=== PATIENT | male | born 1995 | race Caucasian/White ===

== ENCOUNTER 2016-07-05 11:04 | Emergency (ER) | payer OTHER ==
[~2016-07-05] VITALS: Ht 170.2 cm; Wt 72.1 kg
[2016-07-05 11:04] VITALS: BP 143/75
[2016-07-05] MEDS ORDERED: HYDR-971 PO (11:24)
--- NOTE | 2016-07-05 12:28 | ED.ADGEN ---
Past History Past Medical History: Other Past Surgical History: Tonsillectomy Alcohol Use: None Drug Use: None Adult General HPI HPI Patient is a 21 y/o male c/o bilateral low back pain 1 hour after finishing a 4 mile june with full pack. Denies bowel/bladder dysfunction or saddle anesthesia. No prehospital intervention. Review of Systems Review of Systems Constitutional: Denies fever or chills [] Eyes: Denies change in visual acuity, redness, or eye pain [] HENT: Denies nasal congestion or sore throat [] Respiratory: Denies cough or shortness of breath [] Cardiovascular: No additional information not addressed in HPI [] GI: Denies abdominal pain, nausea, vomiting, bloody stools or diarrhea [] : Denies dysuria or hematuria [] Musculoskeletal: Denies back pain or joint pain [] Integument: Denies rash or skin lesions [] Neurologic: Denies headache, focal weakness or sensory changes [] Endocrine: Denies polyuria or polydipsia [] Allergies Allergies Allergies Coded Allergies Type Severity Reaction Last Updated Verified No Known Drug Allergies 03/09/16 No Physical Exam Physical Exam Constitutional: Well developed, well nourished, no acute distress, non-toxic appearance. [] HENT: Normocephalic, atraumatic, bilateral external ears normal, oropharynx moist, no oral exudates, nose normal. [] Eyes: PERRLA, EOMI, conjunctiva normal, no discharge. [] Neck: Normal range of motion, no tenderness, supple, no stridor. [] Cardiovascular:Heart rate regular rhythm, no murmur [] Lungs & Thorax: Bilateral breath sounds clear to auscultation [] Abdomen: Bowel sounds normal, soft, no tenderness, no masses, no pulsatile masses. [] Skin: Warm, dry, no erythema, no rash. [] Back: bilateral paraspinal ttp, no midline tenderness, no CVA tenderness. [] Extremities: No tenderness, no cyanosis, no clubbing, ROM intact, no edema. [] Neurologic: Alert and oriented X 3, normal motor function, normal sensory function, no focal deficits noted. [] Psychologic: Affect normal, judgement normal, mood normal. [] Current Patient Data Vital Signs Vital Signs Date Time Temp Pulse Resp B/P Pulse Ox O2 Delivery O2 Flow Rate FiO2 07/05/16 11:04 98.3 79 20 98 Room Air EKG EKG [] Radiology/Procedures Radiology/Procedures [] Course & Med Decision Making Course & Med Decision Making Pertinent Labs and Imaging studies reviewed. (See chart for details) supportive care. Follow up and return precautions given. [] Final Impression Final Impression Low back pain[] Problems: Dragon Disclaimer Dragon Disclaimer This electronic medical record was generated, in whole or in part, using a voice recognition dictation system. BEAN GONZALEZ MD Jul 05, 2016 12:28
== END 2016-07-05 11:36 | disposition home or self-care (01) ==
LOC: ER 11:04
DX: M54.89 Other dorsalgia (principal)
CPT/HCPCS: 99283

== ENCOUNTER 2016-11-30 19:31 | Emergency (ER) | payer OTHER ==
[~2016-11-30] VITALS: Ht 170.2 cm; Wt 72.1 kg
[~2016-11-30 19:31] MED LIST: HYDR-971 PO
[2016-11-30 19:42] VITALS: BP 126/75
[2016-11-30] MEDS ORDERED: NAPR500T PO (19:57)
--- NOTE | 2016-11-30 19:57 | PHYS DOC ---
Past History Past Medical History: No Pertinent History, Other Past Surgical History: Tonsillectomy Alcohol Use: None Drug Use: None Adult General Chief Complaint Chief Complaint: SHOULDER INJURY HPI HPI She is a pleasant 21-year-old male otherwise healthy who was walking down a flight of stairs when asked he slipped and fell on his left scapula. He denies any loss of conscious, neck pain, focal neurologic deficits in the arm or shoulder. Patient denies any shortness of breath, abdominal pain or other injuries. Pain is with range of motion and direct pressure over the inferior medial aspect of the scapular border. Patient denies any prior injury to same thing. Patient's pain is 7 of 10 worse with range of motion better with immobilization. Review of Systems Review of Systems Constitutional: Denies fever or chills [] Eyes: Denies change in visual acuity, redness, or eye pain [] HENT: Denies nasal congestion or sore throat [] Respiratory: Denies cough or shortness of breath [] Cardiovascular: No additional information not addressed in HPI [] GI: Denies abdominal pain, nausea, vomiting, bloody stools or diarrhea [] : Denies dysuria or hematuria [] Musculoskeletal: Denies back pain or joint pain [] Integument: Denies rash or skin lesions [] Neurologic: Denies headache, focal weakness or sensory changes [] Endocrine: Denies polyuria or polydipsia [] Allergies Allergies Allergies Coded Allergies Type Severity Reaction Last Updated Verified No Known Drug Allergies 03/09/16 No Physical Exam Physical Exam Vital signs reviewed on the chart which documented is within normal limits. Constitutional: Well developed, well nourished, no acute distress, non-toxic appearance. [] HENT: Normocephalic, atraumatic, bilateral external ears normal, oropharynx moist, no oral exudates, nose normal. [] Eyes: PERRLA, EOMI, conjunctiva normal, no discharge. [] Neck: Normal range of motion, no tenderness, supple, no stridor. [] Cardiovascular:Heart rate regular rhythm, no murmur [] Lungs & Thorax: Bilateral breath sounds clear to auscultation [] Skin: Warm, dry, no erythema, no rash. [] Back: Demonstrates significant tissue tenderness to palpation over the order of the scapula and the inferior border of the scapula. There is some mild soft tissue swelling as well. There is decent range of motion external rotation and abduction at the shoulder. There is no tenderness to palpation of the anterior or lateral aspect of the deltoid. Extremities: No tenderness, no cyanosis, no clubbing, increased range of motion in the left shoulder secondary to pain. Capillary refill is brisk at +2 peripheral pulses are brisk at +2 at the radial pulse. Neurologic: Alert and oriented X 3, normal motor function, normal sensory function, no focal deficits noted. [] Psychologic: Affect normal, judgement normal, mood normal. [] Current Patient Data Vital Signs Vital Signs Date Time Temp Pulse Resp B/P (MAP) Pulse Ox O2 Delivery O2 Flow Rate FiO2 11/30/16 19:42 98.8 98 20 97 Room Air EKG EKG [] Radiology/Procedures Radiology/Procedures [] Patient's 3 view x-rays of the left shoulder timed 7:47 PM 11/30/2016 demonstrates no occult scapular fracture no fracture the clavicle and before meals joint humerus looks intact without fracture. Course & Med Decision Making Course & Med Decision Making Pertinent Labs and Imaging studies reviewed. (See chart for details) [] Dragon Disclaimer Dragon Disclaimer This chart was dictated in whole or in part using Voice Recognition software in a busy, high-work load, and often noisy Emergency Department environment. It may contain unintended and wholly unrecognized errors or omissions. Departure Departure: Impression: Primary Impression: Contusion, scapular region Additional Impression: Left shoulder strain Disposition: 01 HOME, SELF-CARE Condition: STABLE Referrals: SANDY PIERSON DO, [facility] (PCP) Patient Instructions: Contusion, Shoulder Pain, Shoulder Sprain Additional Instructions: Please go sick: Monitor symptoms continue. Please return for any new or increasing symptoms if you have any shortness of breath, chest pain is worsened despite treatment or if you have any question concerns. Scripts Naproxen (NAPROSYN) 500 Mg Tablet 1 TAB PO BID, #20 TAB 1 Refill Prov: ROSEANNE REILLY MD 11/30/16 Problem Qualifiers ROSEANNE REILLY MD Nov 30, 2016 19:57
--- NOTE | 2016-12-01 12:01 | RAD ---
Three-view left shoulder radiographs November 30, 2016 Clinical history: Injury to left shoulder. AP internal and external rotation and transscapular digital radiographs of the left shoulder were obtained. No fracture or dislocation left shoulder is seen. Impression: No fracture or dislocation of the left shoulder is seen.
== END 2016-11-30 20:22 | disposition home or self-care (01) ==
LOC: ER 19:31
DX: S46.912A Strain of unspecified muscle, fascia and tendon at shoulder and upper arm level, left arm, initial encounter (principal); W10.8XXA Fall (on) (from) other stairs and steps, initial encounter; Y93.01 Activity, walking, marching and hiking; Y99.8 Other external cause status; Y92.89 Other specified places as the place of occurrence of the external cause
CPT/HCPCS: 73030; 99284

== ENCOUNTER 2017-04-05 02:05 | Emergency (ER) | payer OTHER ==
[~2017-04-05] VITALS: Ht 170.2 cm; Wt 70.3 kg
[~2017-04-05 02:05] MED LIST changes: +NAPR-683 PO
[2017-04-05] MEDS ORDERED: ASPIRIN 81 MG TAB.CHEW PO ONE (02:15)
[2017-04-05] MEDS ORDERED: IV RINGERS SOLUTION,LACTATED 1,000 ML IV SCH (02:15)
[2017-04-05] MEDS ORDERED: LORazepam 1 MG TABLET ONE (02:21)
[2017-04-05] MEDS ORDERED: ASPIRIN 81 MG TAB.CHEW ONE (02:21)
--- NOTE | 2017-04-05 02:27 | ED.ADGEN ---
Past History Past Medical History: Anxiety, Depression, Other Past Surgical History: Tonsillectomy Alcohol Use: None Drug Use: None Adult General Chief Complaint Chief Complaint " .. I think I am having a panic attack...there was a yelling between two friends and I got up set.. I ve had previous dx of panic attack.. I got some cognitive behavioral therapy and was on meds.. 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 Pt. states previously dx as panic disorder. Pt. does smoke. Pt. denies excessive caffeine use. Denies illicit drug use. Patient rises with tachycardia and frequent PVCs per monitor. Patient denies any specific ill contacts, travel or trauma. Patient gets his care at [facility]. Review of Systems Review of Systems Complaints of panic feelings Constitutional: Denies fever or chills [] Eyes: Denies change in visual acuity, redness, or eye pain [] HENT: Denies nasal congestion or sore throat [] Respiratory: Denies cough or shortness of breath [] Cardiovascular: No additional information not addressed in HPI [] GI: Denies abdominal pain, nausea, vomiting, bloody stools or diarrhea [] : Denies dysuria or hematuria [] Musculoskeletal: Denies back pain or joint pain [] Integument: Denies rash or skin lesions [] Neurologic: Denies headache, focal weakness or sensory changes [] Endocrine: Denies polyuria or polydipsia [] All other systems were reviewed and found to be within normal limits, except as documented in this note. Family History Family History Noncontributory Current Medications Current Medications Current Medications Medications (Trade) Dose Ordered Sig/Debi Start Time Stop Time Status Last Admin Dose Admin Aspirin (Children'S Aspirin) 81 mg STK-MED ONCE 04/05/17 02:21 04/05/17 04:13 DC Lactated Ringer's 1,000 ml @ 1,000 mls/hr Q1H 04/05/17 02:15 04/05/17 04:13 DC 04/05/17 02:23 1,000 MLS/HR Lorazepam (Ativan) 1 mg STK-MED ONCE 04/05/17 02:21 04/05/17 04:13 DC Magnesium Hydroxide (Milk Of Magnesia) 2,400 mg STK-MED ONCE 04/05/17 04:01 04/05/17 04:13 DC See nursing for home meds Allergies Allergies Allergies Coded Allergies Type Severity Reaction Last Updated Verified No Known Drug Allergies 03/09/16 No Physical Exam Physical Exam Constitutional: Well developed, well nourished, no acute distress, non-toxic appearance. [] HENT: Normocephalic, atraumatic, bilateral external ears normal, oropharynx moist, no oral exudates, nose normal. [] Eyes: PERRLA, EOMI, conjunctiva normal, no discharge. [] Neck: Normal range of motion, no tenderness, supple, no stridor. [] Cardiovascular: Tachycardia Heart rate regular rhythm, no murmur [, frequent PVCs per monitor Lungs & Thorax: Bilateral breath sounds equal at apexes with scattered wheezes on Auscultation [] Abdomen: Bowel sounds normal, soft, no tenderness, no masses, no pulsatile masses. [] Skin: Warm, dry, no erythema, no rash. [] Back: No tenderness, no CVA tenderness. [] Extremities: No tenderness, no cyanosis, no clubbing, ROM intact, no edema. [] Neurologic: Alert and oriented X 3, normal motor function, normal sensory function, no focal deficits noted. [] Psychologic: Affect normal, judgement normal, mood normal. [] Current Patient Data Vital Signs Vital Signs Date Time Temp Pulse Resp B/P (MAP) Pulse Ox O2 Delivery O2 Flow Rate FiO2 04/05/17 04:10 96 16 124/67 (86) 95 Room Air Lab Results Laboratory Tests Test 04/05/17 02:25 04/05/17 03:10 White Blood Count 8.6 x10^3/uL (4.0-11.0) Red Blood Count 5.15 x10^6/uL (4.30-5.70) Hemoglobin 16.6 g/dL (13.0-17.5) Hematocrit 47.0 % (39.0-53.0) Mean Corpuscular Volume 91 fL (79-100) Mean Corpuscular Hemoglobin 32 pg (25-35) Mean Corpuscular Hemoglobin Concent 35 g/dL (31-37) Red Cell Distribution Width 13.1 % (11.5-14.5) Platelet Count 253 x10^3/uL (140-400) Neutrophils (%) (Auto) 59 % (31-73) Lymphocytes (%) (Auto) 30 % (24-48) Monocytes (%) (Auto) 10 % (0-9) H Eosinophils (%) (Auto) 1 % (0-3) Basophils (%) (Auto) 0 % (0-3) Neutrophils # (Auto) 5.1 x10^3uL (1.8-7.7) Lymphocytes # (Auto) 2.6 x10^3/uL (1.0-4.8) Monocytes # (Auto) 0.8 x10^3/uL (0.0-1.1) Eosinophils # (Auto) 0.1 x10^3/uL (0.0-0.7) Basophils # (Auto) 0.0 x10^3/uL (0.0-0.2) Prothrombin Time 10.8 SEC (9.4-11.4) Prothrombin Time INR 1.1 (0.9-1.1) PTT 22 SEC (23-33) L D-Dimer (Ally) < 0.19 mg/L (0.00-0.50) Sodium Level 144 mmol/L (136-145) Potassium Level 4.1 mmol/L (3.5-5.1) Chloride Level 104 mmol/L (98-107) Carbon Dioxide Level 28 mmol/L (21-32) Anion Gap 12 (6-14) Blood Urea Nitrogen 11 mg/dL (8-26) Creatinine 1.0 mg/dL (0.7-1.3) Estimated GFR (Cockcroft-Gault) 95.3 Glucose Level 116 mg/dL (70-99) H Calcium Level 9.2 mg/dL (8.5-10.1) Magnesium Level 1.7 mg/dL (1.8-2.4) L Total Bilirubin 0.2 mg/dL (0.2-1.0) Direct Bilirubin 0.1 mg/dL (0.0-0.2) Aspartate Amino Transferase (AST) 18 U/L (15-37) Alanine Aminotransferase (ALT) 27 U/L (16-63) Alkaline Phosphatase 65 U/L (46-116) Creatine Kinase 88 U/L (39-308) Creatine Kinase MB (Mass) < 0.5 ng/mL (0.0-3.6) Creatine Kinase MB Relative Index 0.6 % (0-4) Troponin I Quantitative < 0.017 ng/mL (0-0.055) Total Protein 7.5 g/dL (6.4-8.2) Albumin 4.0 g/dL (3.4-5.0) Thyroid Stimulating Hormone (TSH) 5.615 uIU/mL (0.358-3.740) Urine Collection Type Unknown Urine Color Straw Urine Clarity Clear Urine pH 7.0 Urine Specific Dowell 1.015 Urine Protein Neg (NEG-TRACE) Urine Glucose (UA) Neg mg/dL (NEG) Urine Ketones (Stick) Neg mg/dL (NEG) Urine Blood Neg (NEG) Urine Nitrite Neg (NEG) Urine Bilirubin Neg (NEG) Urine Urobilinogen Dipstick 0.2 mg/dL (0.2 mg/dL) Urine Leukocyte Esterase Neg (NEG) Urine RBC 0 /HPF (0-2) Urine WBC 0 /HPF (0-4) Urine Squamous Epithelial Cells Occ /LPF Urine Transitional Epithelial Cells Occ /LPF Urine Renal Epithelial Cells Occ /LPF Urine Bacteria Few /HPF (0-FEW) Urine Opiates Screen Neg (NEG) Urine Methadone Screen Neg (NEG) Urine Barbiturates Neg (NEG) Urine Phencyclidine Screen Neg (NEG) Urine Amphetamine/Methamphetamine Neg (NEG) Urine Benzodiazepines Screen Neg (NEG) Urine Cocaine Screen Neg (NEG) Urine Cannabinoids Screen Neg (NEG) Urine Ethyl Alcohol Neg (NEG) EKG EKG My interpretation of EKG shows a sinus tachycardia heart beats per minute. Does have PVCs.[] Radiology/Procedures Radiology/Procedures [] Course & Med Decision Making Course & Med Decision Making Pertinent Labs and Imaging studies reviewed. (See chart for details) Follow up andrea Dotsone cognitive behavior counseling. Consider out pt. stress testing. [] Final Impression Final Impression 1. History of panic/anxiety disorder[] 2. . Tachycardia with frequent PVCs 3. Hypomagnesium Problems: Dragon Disclaimer Dragon Disclaimer This electronic medical record was generated, in whole or in part, using a voice recognition dictation system. CLARA WATKINS MD Apr 05, 2017 02:27
[2017-04-05] MEDS ORDERED: LORazepam 1 MG TABLET PO ONE (02:30)
[2017-04-05 02:40] LABS: BASO % 0 % (0-3); EOS # 0.1 x10^3/uL (0.0-0.7); EOS % 1 % (0-3); HEMOGLOBIN 16.6 g/dL (13.0-17.5); LYMPH # 2.6 x10^3/uL (1.0-4.8); LYMPH % 30 % (24-48); MEAN CORPUSCULAR HEMOGLOBIN 32 pg (25-35); MEAN CORPUSCULAR HGB CONC 35 g/dL (31-37); MEAN CORPUSCULAR VOLUME 91 fL (79-100); MONO # 0.8 x10^3/uL (0.0-1.1); MONO % 10 % (0-9); NEUT # 5.1 x10^3uL (1.8-7.7); NEUT % 59 % (31-73); PLATELET COUNT 253 x10^3/uL (140-400); RED BLOOD COUNT 5.15 x10^6/uL (4.30-5.70); RED CELL DISTRIBUTION WIDTH 13.1 % (11.5-14.5); WHITE BLOOD COUNT 8.6 x10^3/uL (4.0-11.0)
[2017-04-05 03:01] LABS: ALK PHOS 65 U/L (46-116); ALT (SGPT) 27 U/L (16-63); ANION GAP 12 (6-14); AST (SGOT) 18 U/L (15-37); BLOOD UREA NITROGEN 11 mg/dL (8-26); CALCIUM 9.2 mg/dL (8.5-10.1); CARBON DIOXIDE 28 mmol/L (21-32); CHLORIDE 104 mmol/L (98-107); CREATINE KINASE 88 U/L (39-308); DIRECT BILIRUBIN 0.1 mg/dL (0.0-0.2); GFR 95.3; GLUCOSE 116 mg/dL (70-99); MAGNESIUM 1.7 mg/dL (1.8-2.4); POTASSIUM 4.1 mmol/L (3.5-5.1); SODIUM 144 mmol/L (136-145); TOTAL BILIRUBIN 0.2 mg/dL (0.2-1.0); TOTAL PROTEIN 7.5 g/dL (6.4-8.2)
[2017-04-05 03:24] LABS: BILIRUBIN,URINE NEG (NEG); CLARITY,URINE CLEAR; COLOR,URINE STRAW; GLUCOSE,URINE NEG (NEG); NITRITE,URINE NEG (NEG); UROBILINOGEN,URINE 0.2 mg/dL (0.2 mg/dL)
[2017-04-05 03:25] LABS: BACTERIA,URINE FEW /HPF (0-FEW); RBC,URINE 0 /HPF (0-2); SQUAMOUS EPITHELIAL CELL,UR OCC /LPF; WBC,URINE 0 /HPF (0-4)
[2017-04-05 03:30] LABS: BARBITURATES NEG (NEG); BENZODIAZEPINES NEG (NEG); CANNABINOIDS NEG (NEG); COCAINE NEG (NEG); METHADONE NEG (NEG); OPIATES NEG (NEG); PHENCYCLIDINE NEG (NEG)
[2017-04-05] MEDS ORDERED: MAGNESIUM HYDROXIDE 2,400 MG/30 ML ORAL.SUSP. PO ONE (03:30)
[2017-04-05 03:34] LABS: AMPHETAMINE/METHAMPHETAMINE NEG (NEG)
[2017-04-05] MEDS ORDERED: MAGNESIUM HYDROXIDE 2,400 MG/30 ML ORAL.SUSP. ONE ×2 (03:35→04:01)
[2017-04-05 04:10] VITALS: BP 124/67
--- NOTE | 2017-04-05 06:40 | EKG ---
[address] [address] Test Date: 2017-04-05 Test Time: 02:21:00 Pat Name: JOYCE DUARTE Department: Room: Gender: M [employer] Operator: VANDA : 1995 Requested By: CLARA WATKINS Order Number: [id number] Reading MD: Measurements Intervals [place] Rate: 100 P: 60 AK: 142 QRS: 58 QRSD: 94 T: 26 QT: 318 QTc: 413 Interpretive Statements SINUS RHYTHM VENTRICULAR PREMATURE COMPLEX(ES) ABNORMAL ECG RI6.01 Unconfirmed report No previous ECG available for comparison
--- NOTE | 2017-04-05 09:01 | RAD ---
AP chest 04/05/2017. Comparison: None. Clinical indication: Palpitations. Findings: Cardiac and mediastinal silhouettes are unremarkable. No pleural effusion, pneumothorax or focal consolidation. Impression: No acute cardiopulmonary abnormality.
== END 2017-04-05 04:10 | disposition home or self-care (01) ==
LOC: ER 02:05
DX: F41.9 Anxiety disorder, unspecified (principal); I49.3 Ventricular premature depolarization; R00.0 Tachycardia, unspecified; E83.42 Hypomagnesemia; F32.9 Major depressive disorder, single episode, unspecified
CPT/HCPCS: 36415; 71010; 80048; 80076; 80307; 81001; 82553; 83735; 84443; 84484; 85025; 85379; 85610; 85730; 93005; 96360; 99285; J7120; G0479